=== PATIENT | male | born 1995 | race Caucasian/White ===

== ENCOUNTER 2017-04-13 06:12 | Emergency (ER) | payer OTHER ==
[2017-04-13 06:34] VITALS: BP 133/79; PULSE 51; TEMP 97.9; BMI 23.6
--- NOTE | 2017-04-13 07:26 | PDOC ---
History of Present Illness - General Chief Complaint: Edema Stated Complaint: EYE PROBLEM Time Seen by Provider: 04/13/17 07:06 History Source: Patient Exam Limitations: No Limitations - History of Present Illness Initial Comments: 04/13/17 07:29 21-year-old male presents to the ED with complaints of itching or redness to the left eye upon awakening this morning. Patient states did not get anything into his eye and denies any injury visual changes, headache, or eye discharge. Patient states symptoms have occurred before in the past and normally resolve within days but decided come to the ER today for further evaluation. Patient has no other complaints at this time and denies medical history. Timing/Duration: 4-6 hours Severity: mild Associated Symptoms: reports: denies symptoms Past History - Past Medical History Allergies/Adverse Reactions: Allergies Allergy/AdvReac Type Severity Reaction Status Date / Time No Known Allergies Allergy Verified 04/13/17 06:26 Home Medications: Ambulatory Orders Bacitracin Ophthalmic Oint - 0.5 inch OS BID #1 tube 04/13/17 Other medical history: Pt denies - Psycho/Social/Smoking Cessation Hx Suicidal Ideation: No Smoking History: Never smoked Information on smoking cessation initiated: No Hx Alcohol Use: No Drug/Substance Use Hx: No Substance Use Type: None Patient Lives Alone: No Lives with/in: spouse/SO Review of Systems - Review of Systems Able to Perform ROS?: Yes Constitutional: No: Symptoms Reported HEENTM: Yes: Eye Pain, Tearing (minimal). No: Blurred Vision, Recent change in vision Cardiac (ROS): No: Lightheadedness Musculoskeletal: No: Neck Pain Integumentary: Yes: Other (mid left lower eyelid swelling) Neurological: No: Headache, Dizziness *Physical Exam - Vital Signs Last Vital Signs Temp Pulse Resp BP Pulse Ox 97.9 F 51 L 18 133/79 100 04/13/17 06:27 04/13/17 06:27 04/13/17 06:27 04/13/17 06:27 04/13/17 06:27 - Physical Exam General Appearance: Yes: Nourished, Appropriately Dressed. No: Apparent Distress HEENT: positive: EOMI, CHIDI, Other (. No scleral erythema, no discharge, no mass , mild erythema to conjunctiva. Mild edema to lower eyelid. lacrimal duct nontender and intact. no foreign body noted to left eye. ) Integumentary: positive: Swelling (left lower eyelid) Neurologic: positive: Motor Strength 5/5 (ambulatory) Medical Decision Making - Medical Decision Making 04/13/17 07:37 Patient here with complaints of left eye swelling and itching since awakening this morning. Patient states symptoms have occurred in the past approximately 3 times last episode being in December. Patient on exam had left lower eyelid edema along with tearing of the left eye. Patient had florescein staining done after receiving tetracaine drops with no corneal abrasion noted. Patient with likely allergic conjunctivitis versus bacterial conjunctivitis. Patient ordered for bacitracin ointment and told to take Benadryl as needed for itching. He also was recommended to apply cold packs to the affected area. *DC/Admit/Observation/Transfer Diagnosis at time of Disposition: Itchy eyes, Edema of left eyelid - Discharge Dispostion Disposition: HOME Condition at time of disposition: Good - Prescriptions Prescriptions: Bacitracin Ophthalmic Oint - 0.5 inch OS BID #1 tube - Patient Instructions Printed Discharge Instructions: DI for Conjunctivitis, DI for Eye Allergic Reaction Additional Instructions: Please use oitment as prescribed. May take benadryl 25mg every 8 hrs for eye itching. May apply ice pack to area to alleviate swelling. If symptoms continue greater than 5 days return to the ED or follow upo with your physician.
== END 2017-04-13 07:42 | disposition home or self-care (01) ==
LOC: JER 06:12
DX: H02.846 Edema of left eye, unspecified eyelid (principal); L29.9 Pruritus, unspecified
CPT/HCPCS: 99283-25

== ENCOUNTER 2017-06-08 18:11 | Emergency (ER) | payer OTHER ==
[2017-06-08 18:19] VITALS: BP 142/81; PULSE 80; TEMP 98.4; BMI 22.1
--- NOTE | 2017-06-08 19:02 | PDOC ---
History of Present Illness - General Chief Complaint: Pain, Acute Stated Complaint: INJURY Time Seen by Provider: 06/08/17 18:34 - History of Present Illness Initial Comments: 06/08/17 18:59 CHIEF COMPLAINT: HISTORY OF PRESENT ILLNESS: 22 yo M with no PMH presents to fast track with pain to left ankle. Patient reports his knee "just gave out" while he was walking approximately 1 hour ago. He denies any fall, trauma, or injury to the knee but reports that he "can't really" bear weight or walk on the knee. PAST MEDICAL HISTORY: Denies past medical history FAMILY HISTORY: Denies SOCIAL HISTORY: Denies tobacco, alcohol, illicit drug use. SURGICAL HISTORY: Denies ALLERGIES: No known drug allergies REVIEW OF SYSTEMS General/Constitutional: Denies fever or chills. Denies weakness, weight change. HEENT: Denies change in vision. Denies ear pain or discharge. Denies sore throat. Cardiovascular: Denies chest pain or shortness of breath. Respiratory: Denies cough, wheezing, or hemoptysis. Gastrointestinal: Denies nausea, vomiting, diarrhea or constipation. Denies rectal bleeding. Genitourinary: Denies dysuria, frequency, or change in urination. Musculoskeletal: Left knee pain. Skin and breasts: Denies rash or easy bruising. PHYSICAL EXAM General Appearance: Well-appearing, appropriately dressed. No apparent distress. HEENT: EOMI, PERRLA. No conjunctival pallor. No photophobia, scleral icterus Respiratory/Chest: Lungs CTAB. Cardiovascular: RRR. S1, S2. No JVD, murmur, bradycardia, tachycardia. Vascular Pulses: Dorsalis-Pedis (R): 2+, Dorsalis-Pedis (L): 2+ Musculoskeletal/Extremities: Full ROM to left knee, no swelling, tenderness, erythema. Normal inspection. FROM of all extremities, normal capillary refill. Pelvis Stable. No CVA tenderness. No tenderness to extremities, pedal edema, swelling, erythema or deformity. Integumentary: Appropriate color, dry, warm. No cyanosis, erythema, jaundice or rash Neurologic: foam rubber fabricator II-XII intact. Fully oriented, alert. Appropriate mood/affect. Motor strength 5/5. No appreciable EOM palsy, facial droop or sensory deficit. Past History - Past Medical History Allergies/Adverse Reactions: Allergies Allergy/AdvReac Type Severity Reaction Status Date / Time No Known Allergies Allergy Verified 06/08/17 18:19 Home Medications: Ambulatory Orders Ibuprofen [Motrin -] 400 mg PO QID PRN #28 tablet 06/08/17 Other medical history: Patient Denies - Suicide/Smoking/Psychosocial Hx Smoking History: Never smoked Have you smoked in the past 12 months: No Information on smoking cessation initiated: No Hx Alcohol Use: Yes (Socially) Drug/Substance Use Hx: No Substance Use Type: None *Physical Exam - Vital Signs Last Vital Signs Temp Pulse Resp BP Pulse Ox 98.4 F 80 16 142/81 100 06/08/17 18:16 06/08/17 18:16 06/08/17 18:16 06/08/17 18:16 06/08/17 18:16 ED Treatment Course - RADIOLOGY Radiology Studies Ordered: Category Date Time Status KNEE 3 POS-LEFT [RAD] Stat Radiology 06/08/17 18:37 Taken Medical Decision Making - Medical Decision Making 06/08/17 19:02 22 yo M with no PMH presents to fast track with pain to left ankle. -x-ray r/o fracture/dislocation *DC/Admit/Observation/Transfer Diagnosis at time of Disposition: Knee pain, left Qualifiers: Chronicity: acute Qualified Code(s): M25.562 - Pain in left knee; M25.562 - Pain in left knee - Discharge Dispostion Disposition: HOME Admit: No - Prescriptions Prescriptions: Ibuprofen [Motrin -] 400 mg PO QID PRN #28 tablet PRN Reason: Pain - Referrals Referrals: Bethel Camejo MD [Staff Physician] - - Patient Instructions Printed Discharge Instructions: DI for Knee Pain Additional Instructions: Please take medications as prescribed. As discussed, please follow up with orthopedics for further evaluation of your sudden knee pain for possible MRI or physical therapy. If you develop any new or worsening symptoms, please return to the ER.
== END 2017-06-08 19:19 | disposition home or self-care (01) ==
LOC: JERFT 18:11
DX: M25.562 Pain in left knee (principal); M25.572 Pain in left ankle and joints of left foot; X50.1XXA Overexertion from prolonged static or awkward postures, initial encounter; Y93.01 Activity, walking, marching and hiking; Y92.89 Other specified places as the place of occurrence of the external cause; Y99.8 Other external cause status
CPT/HCPCS: 73562-TC-LT; 99281-25